=== PATIENT | female | born 1965 | race African-American/Black ===

== ENCOUNTER 2017-05-01 05:29 | Emergency (ER) | payer OTHER ==
[~2017-05-01] VITALS: Ht 152.4 cm; Wt 65.8 kg
[2017-05-01 05:34] VITALS: BP 154/101
[2017-05-01] MEDS ORDERED: NAPR500T PO (05:37)
--- NOTE | 2017-05-01 05:37 | PHYS DOC ---
Adult General Chief Complaint Chief Complaint: FOOT INJURY PAIN HPI HPI Patient is a 52 year old female who presents with left ankle pain. She was wearing heels yesterday and twisted her foot around 2000 PM. Pain is in the heel and left side of the ankle. No other injuries. Review of Systems Review of Systems Musculoskeletal: POS ankle pain Integument: Denies rash or skin lesions; no laceration Physical Exam Physical Exam Constitutional: Well developed, well nourished, no acute distress, non-toxic appearance. Skin: Warm, dry, no erythema, no rash. No ecchymosis or lacerations. Extremities: Left lower leg: No proximal fibula tenderness; no pain on palpation of the 5th MT. Pain over the lateral malleoli and posterior ankle region. No swelling noted. Neurologic: Alert and oriented X 3, normal motor function, normal sensory function, no focal deficits noted. Current Patient Data Vital Signs Vital Signs Date Time Temp Pulse Resp B/P (MAP) Pulse Ox O2 Delivery O2 Flow Rate FiO2 05/01/17 05:34 99.2 104 18 95 Room Air 99.2 Radiology/Procedures Radiology/Procedures Left ankle interpreted by myself at 0545 am with no fracture noted. Course & Med Decision Making Course & Med Decision Making air splint placed. precautions given. I have spoken with the patient and/or caregivers. I have explained the patient' s condition, diagnosis and treatment plan based on the information available to me at this time. I have answered the patient's and/or caregiver's questions and addressed any concerns. The patient and/or caregivers have as good an understanding of the patient's diagnosis, condition and treatment plan as can be expected at this point. The patient's condition is stable and appropriate for discharge from the emergency department. The patient will pursue further outpatient evaluation with the primary care physician or other designated or consulting physician as outlined in the discharge instructions. The patient and/or caregivers are agreeable to this plan of care and follow-up instructions have been explained in detail. The patient and/or caregivers have received these instructions in written format and have expressed an understanding of the discharge instructions. The patient and/or caregivers are aware that any significant change in condition or worsening of symptoms should prompt an immediate return to this or the closest emergency department or a call to 911. Yvette Disclaimer Yvette Disclaimer This electronic medical record was generated, in whole or in part, using a voice recognition dictation system. Departure Departure Impression: Primary Impression: Left ankle sprain Disposition: HOME, SELF-CARE Condition: STABLE Referrals: BRE HI MD (PCP) Patient Instructions: Ankle Sprain Scripts Naproxen (NAPROSYN) 500 Mg Tablet 500 MG PO BID, #20 TAB Prov: CARO CASTELLON MD 05/01/17 Problem Qualifiers Primary Impression: Left ankle sprain Encounter type: initial encounter Involved ligament of ankle: unspecified ligament Qualified Codes: S93.402A - Sprain of unspecified ligament of left ankle, initial encounter CARO CASTELLON MD May 01, 2017 05:37
--- NOTE | 2017-05-01 07:17 | RAD ---
Exam performed :Left ankle 3 views Clinical indication: Patient twisted ankle, complaining of pain Date of service: 05/01/17 .Comparison:None available Finding: AP, oblique and lateral radiographs of the ankle reveal the osseous structures to be intact and well aligned. The joint spaces are well-preserved. The articular margins are smooth. Evidence of fracture or dislocation is not identified. Diffuse soft tissue swelling is seen around the ankle joint. Impression: Diffuse soft tissue swelling without underlying acute bony abnormality.
== END 2017-05-01 06:05 | disposition home or self-care (01) ==
LOC: ER 05:29
DX: S93.402A Sprain of unspecified ligament of left ankle, initial encounter (principal); X50.9XXA Other and unspecified overexertion or strenuous movements or postures, initial encounter; Y93.89 Activity, other specified; Y99.8 Other external cause status; Y92.89 Other specified places as the place of occurrence of the external cause
CPT/HCPCS: 73610; 99284-25

== ENCOUNTER → 2018-06-17 | Outpatient (CLI) | payer OTHER ==
[~2018-06-17] MED LIST: NAPR-683 PO
--- NOTE | 2018-06-19 11:58 | KCIC ---
Bilateral digital screening mammograms: Reason for examination: Routine screening. Comparison is made to previous study dated 03/14/2015. Interpretation was made with the benefit of CAD. The skin and nipples show no abnormalities. No abnormal axillary lymph nodes are seen. The breast parenchyma shows scattered fibroglandular density. (Breast density: Category B.) There are no dominant masses, suspicious calcifications or architectural distortions. Impression: No evidence of malignancy. Recommend routine screening. BI-RADS Category 1: Negative. "Our facility is accredited by the [employer] Mammography Program." This patient's information has been entered into a reminder system for the patient to be notified with the results of her examination and a target date for the next mammogram. Electronically signed by: Izabela Clay MD (06/19/2018 11:55 AM) [id number]
== END | disposition home or self-care (01) ==
LOC: KCIC MAMMO 10:30
PROVIDERS: ATTEND Physician Assistant Surgical
DX: Z12.31 Encounter for screening mammogram for malignant neoplasm of breast (principal)
CPT/HCPCS: 77067